=== PATIENT | male | born 1955 | race Caucasian/White ===

== ENCOUNTER → 2023-09-08 08:05 | Outpatient (REF) | payer OTHER, SELFPAY ==
[2023-09-08 09:14] LABS: % Basophils 0.5 % (0-2); % Eosinophils 1.5 % (0-6); % Immature Granulocytes 1.1 % (0-0.5); % Lymphocytes 27.4 % (20.5-51.1); % Monocytes 7.7 % (1.7-9.3); % Neutrophils 61.8 % (42.2-75.2); Absolute Basophils 0.1 10^3/uL (0-0.2); Absolute Eosinophils 0.2 10^3/uL (0-0.7); Absolute Immature Granulocytes 0.1 10^3/uL (0-0.05); Absolute Lymphocytes 2.8 10^3/uL (1.2-3.4); Absolute Monocytes 0.8 10^3/uL (0.1-0.6); Absolute Neutrophils 6.4 10^3/uL (1.4-6.5); Hematocrit 40.9 % (39.0-52.0); Hemoglobin 14.2 g/dL (13.0-18.0); Mean Corp Hgb Conc. 34.7 g/dL (33.0-37.0); Mean Corpuscular Hgb 31.6 pg (27.0-31.0); Mean Corpuscular Volume 91.1 fL (80.0-94.0); Mean Platelet Volume 9.6 fL (7.4-10.4); Nucleated Red Blood Cells % 0 % (-); Platelet Count 416 10^3/uL (130-400); Red Blood Cell Count 4.49 10^6/uL (4.70-6.10); Red Cell Dist. Width 12.6 % (11.5-14.5); White Blood Cell Count 10.3 10^3/uL (4.8-10.8)
[2023-09-08 09:51] LABS: ALT (SGPT) 17 U/L (0-50); AST (SGOT) 24 U/L (17-59); Albumin 4.1 g/dl (3.5-5.0); Alkaline Phosphatase 52 U/L (38-126); Amylase 96 U/L (30-110); Blood Urea Nitrogen 17 mg/dl (9-20); Calcium 8.9 mg/dl (8.4-10.2); Carbon Dioxide 30 mmol/L (22-30); Chloride 104 mmol/L (98-107); Glucose 90 mg/dl (70-99); Lipase 329 U/L (23-300); Potassium 4.4 mmol/L (3.5-5.1); Sodium 138 mmol/L (135-145); Total Bilirubin 0.5 mg/dl (0.2-1.3); Total Protein 6.8 g/dl (6.3-8.2); eGFR > 60.00
== END ==
LOC: REG 08:05
PROVIDERS: ATTENDING PHYSICIAN Nurse Practitioner Family
DX: R19.7 Diarrhea, unspecified (principal); E66.9 Obesity, unspecified; K57.92 Diverticulitis of intestine, part unspecified, without perforation or abscess without bleeding
CPT/HCPCS: 36415; 80053; 82150; 83690; 85025

== ENCOUNTER → 2023-09-17 07:17 | Outpatient (REF) | payer OTHER, SELFPAY | LOC: HWRAD 07:17 | PROVIDERS: ATTENDING PHYSICIAN Nurse Practitioner Family | DX: R74.8 Abnormal levels of other serum enzymes (principal) | CPT/HCPCS: 74177; Q9967 ==

== ENCOUNTER 2025-07-06 08:36 | Emergency (ER) | payer OTHER, SELFPAY ==
[2025-07-06 08:40] VITALS: BP 144/76
[2025-07-06 08:55] VITALS: BP 140/77
[2025-07-06 09:00] VITALS: BP 138/82
[2025-07-06 09:01] VITALS: BMI 28.9
[2025-07-06 09:04] VITALS: BP 138/82
--- NOTE | 2025-07-06 09:25 | ED.GENMED ---
History of Present Illness
General
Chief Complaint: Trauma Significant Mechanism
Source: patient and spouse
Exam Limitations: none
Time Seen by Provider: 07/06/25 08:48
Nursing documentation reviewed up to this point in time: agreed with
History of Present Illness
History of Present Illness:
Patient presents to ED with secondary to persistent right shoulder, right sided rib, right hand, and left ring finger, after losing balance and falling down stairs, as he was walking down to his basement. Patient states that he fell onto his right
shoulder and subsequently rolled down onto the bottom of wooden step. On his last step, patient states that he may have hit the right side of his rib against the steel railing. Patient states that he was careful not to his head when he fell down.
Denies headache. Denies neck pain. Denies dizziness. Denies nausea or vomiting. Denies loss of sensation or weakness. Denies abdominal pain. Denies chest pain. Denies back pain. Patient was able to stand up and walk on his own without
difficulties. Patient is complaining of pain worse with movement, including breathing. Patient otherwise is healthy and does not take any medications daily.
Past History
Past History
ED Past Medical History: None
ED Past Surgical History: Other (L5-S1 back surg. Facial Reconstrution.)
Social History
Tobacco: Non-smoker
Alcohol: Occasional
Employment: Employed
Review of Systems
Review of Systems
Allergies reviewed?: Yes
All Other Systems: ROS reviewed and negative except as documented in HPI and ROS
Constitutional: Reports no symptoms
EENT: Reports no symptoms
Respiratory: Reports no symptoms; Denies trouble breathing
Cardiac: Reports no symptoms
ABD/GI: Reports no symptoms
: Reports no symptoms
Musculoskeletal: Reports other (rib/hand/shoulder pain); Denies neck pain or back pain
Skin: Reports no symptoms
Neurological: Reports no symptoms; Denies headache or weakness
Phy Exam
Physical Exam
Physical Exam:
Physical Exam
General: mild painful distress, not acutely ill. afebrile
Head: nc/at. eomi
Neck: supple. normal range of motion
Heart: s1/s2 regular rate and rhythm
Lungs: no acute respiratory distress. clear bilaterally. mild tenderness to palpation over right ribs at level of rib#5-8, along midaxillary line, without ecchymosis/obvious deformity
Abdomen: normal bowel sounds. not tender.
Neuro: alert and oriented x 3. no focal neurological deficits
Skin: no rash
Psychiatric: well kept. interactive and cooperative
Extremities: tenderness to palpation over dorsum of right hand along with prox 1st/2nd metacarpal and left 4th middle phalanx, without deformity.
Course
Orders/Labs/Results
Orders:
Orders
07/06/25 09:08
CR Finger(s)/thumb Min 2 Vw Lt Urgent
Comment:
Reason For Exam: trauma
Indicate Which Finger:: Ring Finger
CR Hand - Right Min 3 Views Urgent
Comment:
Reason For Exam: trauma
CR Ribs-right 3 Vw W/pa Chest* Urgent
Comment:
Reason For Exam: trauma
CR Shoulder - Right Min 2 View Urgent
Comment:
Reason For Exam: trauma
07/06/25 10:53
Shoulder Immobilizer Right- Tx ONCE
Incentive Spirometry [Rx Incentive Spirometry] [RESP] Urgent
Frequency: q1h while awake
Vital Signs
Initial and Last Documented VS:
Initial Vital Signs
Temp Pulse Resp BP Pulse Ox
98.0 F 61 18 144/76 99
07/06/25 08:40 07/06/25 08:40 07/06/25 08:40 07/06/25 08:40 07/06/25 08:40
Last Documented Vital Signs
Temp Pulse Resp BP Pulse Ox
98.0 F 67 23 136/84 98
07/06/25 08:40 07/06/25 10:15 07/06/25 10:15 07/06/25 10:09 07/06/25 10:15
MDM/Problems Addressed
MDM/Problems Addressed:
X-ray report reviewed and discussed with patient and spouse. Discussed treatment options, including use of arm sling short-term along with incentive spirometer. Recommended PCP follow-up for reevaluation within 1 week. Advised return to ED with
worsening symptoms, fever/worsening pain/difficulty breathing. Patient expresses understanding at time of discharge.
*Pulse Oximetry
SaO2: 100
Oxygen Mode of Delivery: Room air
Patient hypoxic: no
*Critical Care Note
Total Time (30-74mins, 75-104mins- exclusive of procedures): Not Applicable
ED Attending Note
-
Portions of this chart may have been created with voice recognition software.� Occasional wrong word or��sound alike� substitutions may have occurred due to the inherent limitations of voice recognition software.
Discharge Plan
Departure
Patient Disposition: Home (Routine Discharge)
Date of Disposition: 07/06/25
Time of Disposition: 10:59
Patient with high blood pressure during this ER visit?: Yes
Condition: Fair
Discharge Problem:
Contusion
Instructions: How to use an incentive spirometer, Contusion
Prescriptions:
No Action
No Current Medications
0
Referrals:
Alberto Martínez MD [Family Provider, Family Practice]
Activity Restrictions/Additional Instructions:
As discussed, please follow-up with your primary care physician for reevaluation within 1 week. Please consider return to ED with worsening symptoms. In ED, x-ray did not reveal any acute fracture.
Interventions
Interventions:
*General Assessment Last Done: 07/06/25 09:02
*Neglect/Abuse Screening Last Done: 07/06/25 08:40
*ED COVID-19 Vaccine History Last Done: 07/06/25 09:02
*ED Influenza Vaccine History Last Done: 07/06/25 09:02
[facility] Fall Risk Assessment Tool Last Done: 07/06/25 09:02
*Risk Screen - Suicide (C-SSRS) Last Done: 07/06/25 08:40
*Nursing Disposition Last Done: 07/06/25 11:28
Discharge Date and Time
Discharge Date/Time: 07/06/25 11:29
Print Language: PORTUGUESE
[2025-07-06 10:09] VITALS: BP 136/84
== END 2025-07-06 11:29 | disposition home or self-care (01) ==
LOC: EMR 08:36
PROVIDERS: EMERGENCY PHYSICIAN Emergency Medicine; FAMILY PHYSICIAN Family Medicine
DX: T14.8XXA Other injury of unspecified body region, initial encounter (principal); M25.511 Pain in right shoulder; M25.541 Pain in joints of right hand; M25.531 Pain in right wrist; R07.89 Other chest pain; M79.632 Pain in left forearm; M79.642 Pain in left hand; R06.02 Shortness of breath; W10.9XXA Fall (on) (from) unspecified stairs and steps, initial encounter; M48.00 Spinal stenosis, site unspecified; Z98.1 Arthrodesis status; Z87.891 Personal history of nicotine dependence
CPT/HCPCS: 99284; 71101; 73030; 73130; 73140